=== PATIENT | female | born 1970 | race African-American/Black ===

== ENCOUNTER 2022-05-27 12:15 | Inpatient (IN) | payer OTHER ==
[2022-05-27 13:04] VITALS: BMI 30.2
[2022-05-27] MEDS ORDERED: NICOTINE POLACRILEX 2 MG GUM BUC PRN (15:32)
[2022-05-27] MEDS ORDERED: NALOXONE HCL (KLOXXADO) 8 MG SPRAY NS PRN (15:32)
[2022-05-27] MEDS ORDERED: ONDANSETRON *ODT* 4 MG TABLET SL PRN (15:32)
[2022-05-27] MEDS ORDERED: MAGNESIUM HYDROX 2400MG/30ML ORAL SUSPENSION 30 ML CUP PO PRN (15:32)
[2022-05-27] MEDS ORDERED: LOPERAMIDE HCL 2 MG CAPSULE PO PRN (15:32)
[2022-05-27] MEDS ORDERED: BISMUTH SUBSALICYLATE 524 MG/30 ML PO PRN (15:32)
[2022-05-27] MEDS ORDERED: DICYCLOMINE HCL 10 MG CAPSULE PO PRN (15:32)
[2022-05-27] MEDS ORDERED: MAG HYDROX/AL HYDROX/SIMETH 30 ML UNIT-DOSE CUP PO PRN (15:32)
[2022-05-27] MEDS ORDERED: POLYETHYLENE GLYCOL (HEALTHYLAX) 3350 17 GM PACKET PO PRN (15:32)
[2022-05-27] MEDS ORDERED: ACETAMINOPHEN 325 MG TABLET (FP) PO PRN ×2 (15:32)
[2022-05-27] MEDS ORDERED: cloNIDine HCL 0.1 MG TABLET PO ONE ×2 (15:32→17:40)
[2022-05-27] MEDS ORDERED: BUPRENORPHINE HCL 150 MCG, BUPRENORPHINE HCL 75 MCG BC ONE ×2 (15:32→17:40)
[2022-05-27] MEDS ORDERED: BENZOCAINE/MENTHOL (CHLORASEPTIC ) LOZENGE MM PRN (15:32)
[2022-05-27] MEDS ORDERED: BUPRENORPHINE HCL 150 MCG, BUPRENORPHINE HCL 75 MCG BC PRN (15:32)
[2022-05-27] MEDS ORDERED: CYCLOBENZAPRINE HCL 10 MG TABLET (FP) PO SCH (16:00)
[2022-05-27 17:39] LABS: HEMATOCRIT 38.6 % (32.4-45.2); HEMOGLOBIN 12.5 GM/dL (10.7-15.3); MCH 31.2 pg (25.7-33.7); MCHC 32.4 g/dl (32.0-36.0); MEAN CELL VOLUME 96.5 fl (80-96); MEAN PLT VOLUME 8.5 fl (7.5-11.1); PLATELET COUNT 354 10^3/uL (134-434); RDW 14.4 % (11.6-15.6); WHITE BLOOD COUNT 8.4 K/mm3 (4.0-10.0)
[2022-05-27 17:42] LABS: CREATININE 1.1 mg/dL (0.55-1.3)
[2022-05-27 17:43] LABS: ALBUMIN 3.6 g/dl (3.4-5.0); BLOOD UREA NITROGEN 19.7 mg/dL (7-18)
[2022-05-27 17:44] LABS: BILIRUBIN,TOTAL 0.2 mg/dL (0.2-1); CALCIUM 8.7 mg/dL (8.5-10.1)
[2022-05-27 17:45] LABS: TOT PROT 7.3 g/dl (6.4-8.2)
[2022-05-27] MEDS: NICOTINE 10 MG CARTRIDGE (INHALER) IH PRN (18:42)
[2022-05-27] MEDS: CYCLOBENZAPRINE HCL 10 MG TABLET (FP) PO SCH (20:32)
[2022-05-27] MEDS: hydrOXYzine PAMOATE 25 MG CAPSULE (FP) PO PRN (22:32)
[2022-05-27] MEDS: THIAMINE HCL 100 MG TABLET (FP) PO SCH (22:32)
[2022-05-27] MEDS: diazePAM 5 MG TABLET PO PRN (22:32)
[2022-05-27] MEDS: MELATONIN 5 MG TABLETS PO SCH (22:33)
[2022-05-28] MEDS ORDERED: BUPRENORPHINE HCL 150 MCG, BUPRENORPHINE HCL 75 MCG BC PRN
[2022-05-28] MEDS: BUPRENORPHINE HCL 150 MCG, BUPRENORPHINE HCL 75 MCG BC SCH ×2 (05:40→17:51)
[2022-05-28] MEDS ORDERED: LEVOTHYROXINE NA 100 MCG TABLET (FP) PO SCH (10:00)
[2022-05-28] MEDS: CYCLOBENZAPRINE HCL 10 MG TABLET (FP) PO SCH (10:22)
[2022-05-28] MEDS: PRENATAL VITAMINS W/ FOLIC ACID TABLET (FP) PO SCH (10:22)
[2022-05-28] MEDS: NICOTINE 10 MG CARTRIDGE (INHALER) IH PRN (10:23)
[2022-05-28] MEDS: LEVOTHYROXINE NA 100 MCG TABLET (FP) PO SCH (11:00)
[2022-05-28] MEDS: CHOLECALCIFEROL (VIT D3) 400 UNIT (10 MCG) TABLET PO SCH (11:00)
[2022-05-28] MEDS: cloNIDine HCL 0.1 MG TABLET PO PRN (14:40)
[2022-05-28] MEDS: diazePAM 5 MG TABLET PO PRN ×2 (14:40→22:18)
[2022-05-28] MEDS: LACTULOSE 20 GM/30 ML UDC (FOR ORAL USE ONLY) PO SCH (22:17)
[2022-05-28] MEDS: THIAMINE HCL 100 MG TABLET (FP) PO SCH (22:17)
[2022-05-28] MEDS: QUEtiapine FUMARATE 50 MG TABLET PO SCH (22:17)
[2022-05-28] MEDS: MELATONIN 5 MG TABLETS PO SCH (22:17)
[2022-05-28] MEDS: hydrOXYzine PAMOATE 25 MG CAPSULE (FP) PO PRN (22:19)
[2022-05-29] MEDS: BUPRENORPHINE HCL 450 MCG FILM BC SCH ×2 (06:00→17:35)
[2022-05-29] MEDS: LEVOTHYROXINE NA 100 MCG TABLET (FP) PO SCH (06:01)
[2022-05-29] MEDS: PRENATAL VITAMINS W/ FOLIC ACID TABLET (FP) PO SCH (10:10)
[2022-05-29] MEDS: LACTULOSE 20 GM/30 ML UDC (FOR ORAL USE ONLY) PO SCH ×2 (10:10→22:25)
[2022-05-29] MEDS: CHOLECALCIFEROL (VIT D3) 400 UNIT (10 MCG) TABLET PO SCH (10:11)
[2022-05-29] MEDS: cloNIDine HCL 0.1 MG TABLET PO PRN ×2 (10:11→15:54)
[2022-05-29] MEDS: CYCLOBENZAPRINE HCL 10 MG TABLET (FP) PO SCH (10:11)
[2022-05-29] MEDS: diazePAM 5 MG TABLET PO PRN (10:13)
[2022-05-29] MEDS ORDERED: COLLOIDAL OATMEAL 1 BAR EACH TP PRN (11:07)
[2022-05-29] MEDS: ACETAMINOPHEN 325 MG TABLET (FP) PO PRN (15:54)
[2022-05-29] MEDS: hydrOXYzine PAMOATE 25 MG CAPSULE (FP) PO PRN (15:54)
[2022-05-29] MEDS: MELATONIN 5 MG TABLETS PO SCH (22:26)
[2022-05-29] MEDS: QUEtiapine FUMARATE 50 MG TABLET PO SCH (22:26)
[2022-05-29] MEDS: THIAMINE HCL 100 MG TABLET (FP) PO SCH (22:26)
[2022-05-30] MEDS: BUPRENORPHINE/NALOXONE 4 MG/1 MG FILM PACKET SL SCH ×2 (05:46→18:13)
[2022-05-30] MEDS: LEVOTHYROXINE NA 100 MCG TABLET (FP) PO SCH (06:01)
[2022-05-30] MEDS: CHOLECALCIFEROL (VIT D3) 400 UNIT (10 MCG) TABLET PO SCH (10:17)
[2022-05-30] MEDS: CYCLOBENZAPRINE HCL 10 MG TABLET (FP) PO SCH (10:17)
[2022-05-30] MEDS: PRENATAL VITAMINS W/ FOLIC ACID TABLET (FP) PO SCH (10:17)
[2022-05-30] MEDS: LACTULOSE 20 GM/30 ML UDC (FOR ORAL USE ONLY) PO SCH ×2 (10:17→22:39)
[2022-05-30] MEDS: NICOTINE 10 MG CARTRIDGE (INHALER) IH PRN ×2 (11:47→20:03)
[2022-05-30] MEDS: THIAMINE HCL 100 MG TABLET (FP) PO SCH (22:37)
[2022-05-30] MEDS: QUEtiapine FUMARATE 50 MG TABLET PO SCH (22:37)
[2022-05-30] MEDS: MELATONIN 5 MG TABLETS PO SCH (22:37)
[2022-05-30] MEDS: cloNIDine HCL 0.1 MG TABLET PO PRN (22:41)
[2022-05-31] MEDS ORDERED: BUPRENORPHINE/NALOXONE 8 MG/2 MG FILM PACKET SL ONE (06:00)
[2022-05-31] MEDS: LEVOTHYROXINE NA 100 MCG TABLET (FP) PO SCH (06:15)
[2022-05-31] MEDS: ACETAMINOPHEN 325 MG TABLET (FP) PO PRN (06:43)
[2022-05-31] MEDS: hydrOXYzine PAMOATE 25 MG CAPSULE (FP) PO PRN ×2 (06:43→13:44)
[2022-05-31 10:08] VITALS: RESP 18
[2022-05-31] MEDS: LACTULOSE 20 GM/30 ML UDC (FOR ORAL USE ONLY) PO SCH (10:26)
[2022-05-31] MEDS: CHOLECALCIFEROL (VIT D3) 400 UNIT (10 MCG) TABLET PO SCH (10:26)
[2022-05-31] MEDS: CYCLOBENZAPRINE HCL 10 MG TABLET (FP) PO SCH (10:26)
[2022-05-31] MEDS: PRENATAL VITAMINS W/ FOLIC ACID TABLET (FP) PO SCH (10:26)
[2022-05-31 13:28] VITALS: BP 132/86; PULSE 84; TEMP 97.5
== END 2022-05-31 15:03 | disposition home or self-care (01) | DRG 897 ==
LOC: YASAS 12:15 → Y3N 16:20
PROVIDERS: ADMIT Allergy & Immunology; ATTEND Surgery
PROC: HZ2ZZZZ Detoxification Services for Substance Abuse Treatment (ICD-10-PCS; principal; 2022-05-27)
DX: F11.23 Opioid dependence with withdrawal (principal); F13.20 Sedative, hypnotic or anxiolytic dependence, uncomplicated; F10.230 Alcohol dependence with withdrawal, uncomplicated; F17.210 Nicotine dependence, cigarettes, uncomplicated; F31.9 Bipolar disorder, unspecified; F60.3 Borderline personality disorder; E89.0 Postprocedural hypothyroidism; R79.89 Other specified abnormal findings of blood chemistry; Z86.73 Personal history of transient ischemic attack (TIA), and cerebral infarction without residual deficits; Z99.89 Dependence on other enabling machines and devices
CPT/HCPCS: 36415; 80053; 81025; 82140; 83735; 85027; 86780; 87811; 93005; 93010; C9803-CS; U0003; U0005